=== PATIENT | male | born 1965 | race Caucasian/White ===

== ENCOUNTER 2017-08-01 19:04 | Emergency (ER) | payer BC, SELFPAY ==
[2017-08-01] MEDS ORDERED: Nitroglycerin 0.4 MG TAB (25 Tab Bottle) ONE (19:33)
[2017-08-01 19:47] LABS: Band 2 % (5-11); Eosinophils 2 % (0-10); Hemoglobin 17.4 g/dL (14.0-18.0); Lymphocytes 30 % (21-51); MDiff Complete? YES; Mean Corpuscular HGB CONC 39.5 g/dL (32.0-36.0); Mean Corpuscular Hemoglobin 34.9 pg (27.0-31.0); Mean Corpuscular Volume 88.5 fl (80.0-94.0); Mean Platelet Volume 5.9 fL (7.4-10.4); Monocytes 8 % (0-10); Neutrophil 58 % (42-75); Platelet Count 237 thou/uL (130-400); RBC Distribution Width 11.1 % (11.5-14.5); Red Blood Cell (RBC) Count 4.97 mill/uL (4.70-6.10)
[2017-08-01 19:50] LABS: ALT (SGPT) 28 U/L (8-55); AST (SGOT) 17 U/L (5-34); Albumin 4.2 g/dL (3.5-5.0); Alkaline Phosphatase 69 U/L (40-150); Anion Gap 14 mmol/L (10-20); BUN (Urea Nitrogen) 12 mg/dL (8.9-20.6); Bilirubin, Total 0.5 mg/dL (0.2-1.2); Calc. Creatinine Clearance 0 mL/min (70-130); Calcium 9.4 mg/dL (7.8-10.44); Carbon Dioxide 25 mmol/L (22-29); Chloride 107 mmol/L (98-107); Estimated GFR-MDRD Greater than 90; Globulin 2.9 g/dL (2.4-3.5); Glucose 96 mg/dL (70-105); Potassium 3.5 mmol/L (3.5-5.1); Protein, Total 7.1 g/dL (6.0-8.3); Sodium 142 mmol/L (136-145)
[2017-08-01 19:52] LABS: CKMB 1.5 ng/mL (0-6.6); Troponin I Less than 0.010 ng/mL (< 0.028)
[2017-08-01] MEDS ORDERED: Nitroglycerin 2% Ointment 1 INCH/1 GM Packet ONE (20:02)
--- NOTE | 2017-08-01 20:14 | RAD ---
PORTABLE CHEST ONE VIEW 08/01/17 at 7:13 p.m. HISTORY: Chest pain. FINDINGS: Comparison made to exam dated 07/21/10. The heart is enlarged. No focal areas of consolidation, pneumothorax cal pulmonary edema or pleural effusions are seen. IMPRESSION: No acute process. POS: [facility]
== END 2017-08-01 20:35 | disposition short-term general hospital (02) ==
LOC: BURERS 19:04
DX: I20.9 Angina pectoris, unspecified (principal); I10 Essential (primary) hypertension; F17.220 Nicotine dependence, chewing tobacco, uncomplicated; F41.9 Anxiety disorder, unspecified; F31.9 Bipolar disorder, unspecified
CPT/HCPCS: 71045; 80053; 82553; 83690; 84484; 85025; 85379; 93005; 94760

== ENCOUNTER 2018-06-19 20:42 | Emergency (ER) | payer OTHER, SELFPAY ==
[2018-06-19] MEDS ORDERED: Ondansetron PF 4 MG/2 ML Vial ONE (20:48)
[2018-06-19] MEDS ORDERED: Ondansetron ODT 4 MG TAB ONE (20:48)
[2018-06-19] MEDS ORDERED: Acetaminophen 500 MG TAB ONE (21:34)
[2018-06-19 21:40] LABS: #Basophils 0.1 thou/uL (0.0-0.2); #Eosinphils 0.1 thou/uL (0.0-0.7); #Lymphocytes 1.7 thou/uL (1.20-3.40); #Monocytes 0.6 thou/uL (0.11-0.59); #Neutrophils 3.8 thou/uL (1.40-6.50); %Basophils 1.9 % (0.0-1.0); %Eosinophils 1.9 % (0.0-10.0); %Lymphocytes 27.2 % (21.0-51.0); Hemoglobin 16.2 g/dL (14.0-18.0); Mean Corpuscular HGB CONC 35.6 g/dL (32.0-36.0); Mean Corpuscular Volume 87.2 fL (78.0-98.0); Mean Platelet Volume 5.3 fL (7.4-10.4); Platelet Count 258 thou/uL (130-400); RBC Distribution Width 10.8 % (11.5-14.5); Red Blood Cell (RBC) Count 5.21 mill/uL (4.70-6.10); White Blood Cell (WBC) Count 6.4 thou/uL (4.8-10.8)
[2018-06-19 21:42] LABS: PTT 28.7 SEC (22.9-36.1); Prothrombin Time 13.4 SEC (12.0-14.7)
[2018-06-19 21:45] LABS: ALT (SGPT) 14 U/L (8-55); AST (SGOT) 18 U/L (5-34); Albumin 4.2 g/dL (3.5-5.0); Alcohol Less than 10 mg/dL (Less than 10); Alkaline Phosphatase 79 U/L (40-150); Anion Gap 13 mmol/L (10-20); BUN (Urea Nitrogen) 18 mg/dL (8.4-25.7); Bilirubin, Total 0.6 mg/dL (0.2-1.2); Calc. Creatinine Clearance 0 mL/min (70-130); Calcium 9.7 mg/dL (7.8-10.44); Carbon Dioxide 25 mmol/L (22-29); Chloride 106 mmol/L (98-107); Estimated GFR-MDRD 74; Globulin 3.1 g/dL (2.4-3.5); Glucose 105 mg/dL (70-105); Potassium 4.4 mmol/L (3.5-5.1); Protein, Total 7.3 g/dL (6.0-8.3); Sodium 140 mmol/L (136-145)
--- NOTE | 2018-06-19 21:46 | CT ---
CT OF THE BRAIN WITHOUT CONTRAST: 06/19/[address] was compared with a 09/16/05 study. Then ventricles remain normal in size and show no shift. No intracranial bleeding or extra-axial hematoma was seen. There is little fragmentati on near the tips of the nasal bones and a suggestion of a probable fracture of the left nasal bone. T he paranasal sinuses are clear. A little mucosal thickening may be present in the sphenoid sinus. The mastoid air cells are under aerated bilaterally, but particularly on the left. IMPRESSION: 1. No acute intracranial findings. 2. Probable small nasal fractures. POS: HOME
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
--- NOTE | 2018-06-19 22:02 | RAD ---
PORTABLE CHEST 06/19/18 An AP portable film at 2054 is compared with a 08/01/17 study. The cardiac size is stable. There is no congestive change or pleural effusion. No gross fractures wer e identified. Small rib fractures would be missed without dedicated films. The mediastinum shows no w idening or shift. IMPRESSION: No acute finding. POS: [facility]
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
== END 2018-06-19 22:19 | disposition home or self-care (01) ==
LOC: BURERS 20:42
DX: S06.0X9A Concussion with loss of consciousness of unspecified duration, initial encounter (principal); S02.2XXA Fracture of nasal bones, initial encounter for closed fracture; S00.212A Abrasion of left eyelid and periocular area, initial encounter; I10 Essential (primary) hypertension; F17.220 Nicotine dependence, chewing tobacco, uncomplicated; Z79.899 Other long term (current) drug therapy; Y08.89XA Assault by other specified means, initial encounter
CPT/HCPCS: 36415; 70450; 70486; 71045; 72125; 80053; 80307; 85025; 85610; 85730; J2405; Q0162

== ENCOUNTER 2018-08-12 10:09 | Emergency (ER) | payer SELFPAY ==
[2018-08-12] MEDS ORDERED: Nitroglycerin 0.4 MG TAB 1 EACH ONE ×2 (10:19→11:41)
[2018-08-12] MEDS ORDERED: Aspirin Chewable 81 MG TAB ONE (10:19)
[2018-08-12 10:55] LABS: #Basophils 0.1 thou/uL (0.0-0.2); #Eosinphils 0.1 thou/uL (0.0-0.7); #Lymphocytes 1.8 thou/uL (1.20-3.40); #Monocytes 0.5 thou/uL (0.11-0.59); #Neutrophils 3.1 thou/uL (1.40-6.50); %Basophils 1.1 % (0.0-1.0); %Eosinophils 2.6 % (0.0-10.0); %Lymphocytes 31.8 % (21.0-51.0); %Monocytes 8.9 % (0.0-10.0); %Neutrophils 55.7 % (42.0-75.0); Hemoglobin 17.2 g/dL (14.0-18.0); Mean Corpuscular HGB CONC 35.2 g/dL (32.0-36.0); Mean Corpuscular Hemoglobin 31.7 pg (27.0-31.0); Mean Corpuscular Volume 89.9 fL (78.0-98.0); Mean Platelet Volume 5.3 fL (7.4-10.4); Platelet Count 281 thou/uL (130-400); RBC Distribution Width 11.2 % (11.5-14.5); Red Blood Cell (RBC) Count 5.43 mill/uL (4.70-6.10); White Blood Cell (WBC) Count 5.6 thou/uL (4.8-10.8)
[2018-08-12 11:09] LABS: ALT (SGPT) 21 U/L (8-55); AST (SGOT) 12 U/L (5-34); Albumin 4.1 g/dL (3.5-5.0); Alkaline Phosphatase 65 U/L (40-150); Anion Gap 14 mmol/L (10-20); BUN (Urea Nitrogen) 10 mg/dL (8.4-25.7); Bilirubin, Total 0.5 mg/dL (0.2-1.2); CK (CPK) 82 U/L (30-200); Calc. Creatinine Clearance 0 mL/min (70-130); Calcium 9.7 mg/dL (7.8-10.44); Carbon Dioxide 24 mmol/L (22-29); Chloride 109 mmol/L (98-107); Estimated GFR-MDRD Greater than 90; Globulin 2.9 g/dL (2.4-3.5); Glucose 112 mg/dL (70-105); Lipase 16 U/L (8-78); Potassium 3.9 mmol/L (3.5-5.1); Sodium 143 mmol/L (136-145)
[2018-08-12 11:34] LABS: Cocaine Metabolite Screen Not Detected (NotDetected); Phencyclidine (PCP) Not Detected (NotDetected); THC/Cannabinoid Screen Not Detected (NotDetected)
[2018-08-12 11:35] LABS: Amphetamine Detected (NotDetected); Barbiturates Screen Not Detected (NotDetected); Benzodiazepine Screen Not Detected (NotDetected); Medtox Control Line Valid? VALID (VALID); Methadone Not Detected (NotDetected); Methamphetamine Detected (NotDetected); Opiate Screen Not Detected (NotDetected); Oxycodone Screen Not Detected (NotDetected); Tricyclic Screen Not Detected (NotDetected)
[2018-08-12 14:11] LABS: Troponin I Less than 0.010 ng/mL (< 0.028)
--- NOTE | 2018-08-12 19:35 | RAD ---
PORTABLE CHEST 08/12/18 An AP portable film at 1027 is compared with a 06/19/18 study. The heart is normal in size and the lungs are clear. No infiltrate or effusion was seen. There is no vascular congestion or edema. IMPRESSION: No acute thoracic finding. POS: HOME
== END 2018-08-12 14:30 | disposition home or self-care (01) ==
LOC: BURERS 10:09
DX: R07.89 Other chest pain (principal); I10 Essential (primary) hypertension; F41.9 Anxiety disorder, unspecified; F17.220 Nicotine dependence, chewing tobacco, uncomplicated; Z79.899 Other long term (current) drug therapy
CPT/HCPCS: 36415; 71045; 80053; 80306; 82550; 83690; 84484; 85025; 93005; 94760

== ENCOUNTER 2019-11-22 17:23 | Emergency (ER) | payer SELFPAY ==
[2019-11-22] MEDS ORDERED: Lidocaine 1% w/Epinephrine 1:100K 20 ML VIAL ONE (18:01)
--- NOTE | 2019-11-22 19:31 | RAD ---
EFT HAND THREE VIEWS: 11/22/19 Opaque foreign material is seen in the soft tissues between the second and third MCP joints. No bony fractures were apparent. The bones and joints appear intact. IMPRESSION: Soft tissue foreign body between the second and third MCP joints. POS: HOME
--- NOTE | 2019-11-22 19:32 | RAD ---
LEFT HAND THREE VIEWS: 11/22/19 Follow-up images show removal of portions of the foreign body between the second and third MCP joints . There is still some residual present, however, primarily just dorsal to those joints. There are no other new findings. IMPRESSION: Partial removal of foreign bodies as noted. POS: HOME
[2019-11-22] MEDS ORDERED: CEFAZOLIN 1 GM VIAL ONE (21:21)
[2019-11-22 21:26] LABS: #Basophils 0.1 thou/uL (0.0-0.2); #Eosinphils 0.2 thou/uL (0.0-0.7); #Lymphocytes 2.7 thou/uL (1.20-3.40); #Monocytes 0.6 thou/uL (0.11-0.59); #Neutrophils 4.4 thou/uL (1.40-6.50); %Basophils 1.1 % (0.0-1.0); %Eosinophils 2.4 % (0.0-10.0); %Monocytes 7.2 % (0.0-10.0); %Neutrophils 55.3 % (42.0-75.0); Hemoglobin 16.4 g/dL (14.0-18.0); Mean Corpuscular HGB CONC 32.8 g/dL (32.0-36.0); Mean Corpuscular Volume 94.5 fL (78.0-98.0); Platelet Count 249 thou/uL (130-400); RBC Distribution Width 11.3 % (11.5-14.5); Red Blood Cell (RBC) Count 5.28 mill/uL (4.70-6.10)
[2019-11-22 21:41] LABS: ALT (SGPT) 18 U/L (8-55); AST (SGOT) 14 U/L (5-34); Albumin 4.6 g/dL (3.5-5.0); Alkaline Phosphatase 67 U/L (40-110); Anion Gap 15 mmol/L (10-20); BUN (Urea Nitrogen) 11 mg/dL (8.4-25.7); Bilirubin, Total 1.3 mg/dL (0.2-1.2); Calc. Creatinine Clearance 0 mL/min (70-130); Calcium 9.1 mg/dL (7.8-10.44); Carbon Dioxide 24 mmol/L (22-29); Chloride 106 mmol/L (98-107); Estimated GFR-MDRD 75; Glucose 89 mg/dL (70-105); Potassium 3.8 mmol/L (3.5-5.1); Protein, Total 7.6 g/dL (6.0-8.3); Sodium 141 mmol/L (136-145)
[2019-11-22] MEDS ORDERED: Morphine 4 MG/ML VIAL ONE (21:55)
[2019-11-22] MEDS ORDERED: Ondansetron PF 4 MG/2 ML Vial ONE (21:55)
--- NOTE | 2019-11-23 06:59 | RAD ---
LEFT HAND: Date: 11/22/2019 A second post debridement x-ray was obtained. This film done at 1933 hours is compared with the prior study at 1839 hours. There still remains an opaque foreign body in the soft tissues dorsal to the second and third MCP amna nts. There does appear to be slightly less debris now than on the prior film, but there is still a rao bstantial piece present. There are no other new findings. IMPRESSION: Slightly fewer soft tissue foreign bodies, but some still persist. POS: HOME
== END 2019-11-22 22:05 | disposition short-term general hospital (02) ==
LOC: BURERS 17:23
DX: S61.422A Laceration with foreign body of left hand, initial encounter (principal); I10 Essential (primary) hypertension; F41.9 Anxiety disorder, unspecified; F17.220 Nicotine dependence, chewing tobacco, uncomplicated; F31.9 Bipolar disorder, unspecified; W26.8XXA Contact with other sharp object(s), not elsewhere classified, initial encounter
CPT/HCPCS: 64450; 80053; 85025; 93005; 96365; 96375; J0690; J2270; J2405

== ENCOUNTER 2020-04-27 14:16 | Emergency (ER) | payer SELFPAY ==
[2020-04-28 02:55] LABS: SARS-CoV-2 MS2 Positive; SARS-CoV-2 N Gene Positive; SARS-CoV-2 S Gene Positive; SARS-CoV-2 by NAA DETECTED (NotDetected); SARS-CoV-2 orf1ab Positive
== END 2020-04-27 15:30 | disposition home or self-care (01) ==
LOC: BURERS 14:16
DX: U07.1 COVID-19 (principal); F15.10 Other stimulant abuse, uncomplicated; R00.0 Tachycardia, unspecified; I10 Essential (primary) hypertension; F17.200 Nicotine dependence, unspecified, uncomplicated
CPT/HCPCS: 87635; 99283; U0003

== ENCOUNTER 2021-07-03 11:17 | Emergency (ER) | payer OTHER, SELFPAY ==
[2021-07-03] MEDS ORDERED: Iopamidol 370 76% 100 ML VIAL IV ONE (11:18)
[2021-07-03 12:02] LABS: Bilirubin Negative (Negative); Blood, Urine Negative (Negative); Clarity Clear (Clear); Glucose, Urine (Dipstick) Negative (Negative); Ketone, Urine Negative (Negative); Leukocyte Negative (Negative); Nitrite Negative (Negative); Protein, Urine (Dipstick) Negative (Neg-Trace); Urobilinogen 0.2 mg/dL (Less than 2); pH, Urine 6.5 (5.0-9.0)
[2021-07-03 12:03] LABS: #Basophils 0.1 thou/uL (0.0-0.2); #Eosinphils 0.2 thou/uL (0.0-0.7); #Lymphocytes 1.8 thou/uL (1.20-3.40); #Monocytes 0.7 thou/uL (0.11-0.59); %Basophils 0.9 % (0.0-1.0); %Eosinophils 2.9 % (0.0-10.0); %Lymphocytes 26.2 % (21.0-51.0); %Monocytes 10.2 % (0.0-10.0); %Neutrophils 59.8 % (42.0-75.0); Hemoglobin 18.6 g/dL (14.0-18.0); Mean Corpuscular HGB CONC 34.6 g/dL (32.0-36.0); Mean Corpuscular Hemoglobin 31.1 pg (27.0-31.0); Mean Corpuscular Volume 90.1 fL (78.0-98.0); Mean Platelet Volume 5.5 fL (7.4-10.4); Platelet Count 255 thou/uL (130-400); RBC Distribution Width 10.9 % (11.5-14.5); Red Blood Cell (RBC) Count 5.98 mill/uL (4.70-6.10); White Blood Cell (WBC) Count 6.7 thou/uL (4.8-10.8)
[2021-07-03 12:13] LABS: ALT (SGPT) 17 U/L (8-55); AST (SGOT) 15 U/L (5-34); Albumin 4.5 g/dL (3.5-5.0); Alkaline Phosphatase 70 U/L (40-110); Anion Gap 14 mmol/L (10-20); BUN (Urea Nitrogen) 8 mg/dL (8.4-25.7); Bilirubin, Total 0.6 mg/dL (0.2-1.2); Calc. Creatinine Clearance 0 mL/min (70-130); Calcium 9.5 mg/dL (7.8-10.44); Carbon Dioxide 27 mmol/L (22-29); Chloride 106 mmol/L (98-107); Globulin 3.1 g/dL (2.4-3.5); Glucose 95 mg/dL (70-105); Lipase 15 U/L (8-78); Potassium 4.2 mmol/L (3.5-5.1); Protein, Total 7.6 g/dL (6.0-8.3); Sodium 143 mmol/L (136-145)
== END 2021-07-03 13:25 ==
LOC: BURERS 11:17
DX: A08.4 Viral intestinal infection, unspecified (principal); R29.700 NIHSS score 0; I10 Essential (primary) hypertension; Z79.899 Other long term (current) drug therapy
CPT/HCPCS: 36415; 74177; 80053; 81003; 83690; 85025; Q9967

== ENCOUNTER 2021-12-02 14:41 | Emergency (ER) | payer SELFPAY ==
[2021-12-02] MEDS ORDERED: Nitroglycerin 0.4 MG TAB 1 EACH ONE ×3 (14:46→14:57)
[2021-12-02] MEDS ORDERED: Aspirin Chewable 81 MG TAB ONE (14:50)
[2021-12-02] MEDS ORDERED: Ondansetron PF 4 MG/2 ML Vial ONE (14:50)
[2021-12-02 15:02] LABS: #Basophils 0.1 thou/uL (0.0-0.2); #Eosinphils 0.4 thou/uL (0.0-0.7); #Lymphocytes 1.6 thou/uL (1.20-3.40); #Monocytes 0.8 thou/uL (0.11-0.59); #Neutrophils 3.8 thou/uL (1.40-6.50); %Basophils 1.1 % (0.0-1.0); %Eosinophils 6.8 % (0.0-10.0); %Lymphocytes 24.2 % (21.0-51.0); %Monocytes 11.3 % (0.0-10.0); %Neutrophils 56.7 % (42.0-75.0); Hemoglobin 16.9 g/dL (14.0-18.0); Mean Corpuscular Hemoglobin 31.6 pg (27.0-31.0); Mean Corpuscular Volume 90.3 fL (78.0-98.0); Mean Platelet Volume 5.3 fL (7.4-10.4); Platelet Count 181 thou/uL (130-400); RBC Distribution Width 11.6 % (11.5-14.5); Red Blood Cell (RBC) Count 5.35 mill/uL (4.70-6.10); White Blood Cell (WBC) Count 6.6 thou/uL (4.8-10.8)
[2021-12-02] MEDS ORDERED: Morphine 4 MG/ML VIAL ONE (15:11)
[2021-12-02] MEDS ORDERED: Nitroglycerin 2% Ointment 1 INCH/1 GM Packet ONE (15:12)
[2021-12-02 15:18] LABS: ALT (SGPT) 11 U/L (8-55); AST (SGOT) 10 U/L (5-34); Albumin 4.1 g/dL (3.5-5.0); Alkaline Phosphatase 73 U/L (40-110); Anion Gap 13 mmol/L (10-20); BUN (Urea Nitrogen) 13 mg/dL (8.4-25.7); Bilirubin, Total 0.8 mg/dL (0.2-1.2); Calc. Creatinine Clearance 0 mL/min (70-130); Calcium 8.7 mg/dL (7.8-10.44); Carbon Dioxide 20 mmol/L (22-29); Chloride 109 mmol/L (98-107); Estimated GFR 105; Globulin 2.9 g/dL (2.4-3.5); Glucose 100 mg/dL (70-105); Lipase 15 U/L (8-78); Sodium 138 mmol/L (136-145)
[2021-12-02 19:06] LABS: Troponin I Less than 0.010 ng/mL (< 0.028)
== END 2021-12-02 19:48 | disposition short-term general hospital (02) ==
LOC: BURERS 14:41
DX: R07.2 Precordial pain (principal); I10 Essential (primary) hypertension
CPT/HCPCS: 36415; 71045; 80053; 83690; 83880; 84484; 85025; 93005; 96361; 96374; 96375; J2270; J2405

== ENCOUNTER 2025-01-28 11:22 | Emergency (ER) | payer OTHER ==
[2025-01-28] MEDS ORDERED: Sulfameth/Trimethoprim DS 800-160mg TAB ONE (12:15)
[2025-01-28] MEDS ORDERED: CEFAZOLIN 1 GM VIAL ONE (12:15)
[2025-01-28] MEDS ORDERED: Ibuprofen 800 MG TAB ONE (12:36)
== END 2025-01-28 13:00 | disposition home or self-care (01) ==
LOC: BURERS 11:22
DX: L03.116 Cellulitis of left lower limb (principal); Z86.14 Personal history of Methicillin resistant Staphylococcus aureus infection; I10 Essential (primary) hypertension; F17.200 Nicotine dependence, unspecified, uncomplicated
CPT/HCPCS: 96372; 99283; J0690; J2919